=== PATIENT | male | born 1980 | race African-American/Black ===

== ENCOUNTER 2020-06-28 05:41 | Emergency (ER) | payer SELFPAY ==
[~2020-06-28] VITALS: Ht 175.3 cm; Wt 77.3 kg
[2020-06-28] MEDS ORDERED: iohexol 300mg/ml 100ml inj. ONE (06:37)
[2020-06-28 06:41] LABS: BASOPHILS # (AUTO) 0.1 X10'3 (0-0.2); BASOPHILS % (AUTO) 1.1 % (0-1); EOSINOPHILS # (AUTO) 0.3 X10'3 (0-0.9); EOSINOPHILS % (AUTO) 2.9 % (0-6); HEMATOCRIT 32.8 % (42.0-52.0); HEMOGLOBIN 11.4 g/dl (14.0-17.9); LYMPHOCYTES # (AUTO) 1.5 X10'3 (1.1-4.8); LYMPHOCYTES % (AUTO) 16.3 % (21-51); MEAN CORPUSCULAR HEMOGLOBIN 32.6 PG (27.0-31.0); MEAN CORPUSCULAR HGB CONC 34.8 g/dL (33.0-36.5); MEAN CORPUSCULAR VOLUME 93.8 FL (78-98); MEAN PLATELET VOLUME 8.2 FL (7.4-10.4); MONOCYTES # (AUTO) 1.5 X10'3 (0-0.9); MONOCYTES % (AUTO) 16.1 % (2-12); NEUTROPHILS % (AUTO) 63.6 % (42-75); PLATELET COUNT 243 X10'3 (140-440); RED BLOOD COUNT 3.49 X10'6 (4.70-6.10); RED CELL DISTRIBUTION WIDTH 13.4 % (11.5-14.5); WHITE BLOOD COUNT 9.3 X10'3 (4.5-11.0)
[2020-06-28 06:55] LABS: ALANINE AMINOTRANSFERASE 65 U/L (12-78); ALBUMIN 3.5 G/DL (3.4-5.0); ALBUMIN/GLOBULIN RATIO 0.7 (1.1-1.5); ALKALINE PHOSPHATASE 94 IU/L (46-116); ANION GAP 9 (8-16); ASPARTATE AMINO TRANSFERASE 49 U/L (10-37); BILIRUBIN,TOTAL 0.8 MG/DL (0.1-1.0); BLOOD UREA NITROGEN 12 MG/DL (7-18); BUN/CREATININE RATIO 12.1 (5.4-32.0); CALCIUM 9.8 MG/DL (8.5-10.1); CHLORIDE 99 MMOL/L (99-107); CREATININE 0.99 MG/DL (0.60-1.10); GLUCOSE 120 MG/DL (70-104); POTASSIUM 4.7 MMOL/L (3.5-5.1); SODIUM 138 MMOL/L (135-145); TOTAL CARBON DIOXIDE 29.8 MMOL/L (24-32); TOTAL PROTEIN 8.5 G/DL (6.4-8.2); eGFR > 90 ML/MIN
--- NOTE | 2020-06-28 07:17 | NUR ---
Let Dr Gamino know that the pt's sister has talked with [facility] and they pt is good to be transferred there. Also, let the pt's sister know that a transfer has to take place through the doctors and so Dr Gamino will need to talk to them and see about the transfer.
--- NOTE | 2020-06-28 07:25 | NUR ---
Dr Gamino in to talk with the pt's sister.
[2020-06-28 07:43] LABS: D-DIMER 6.19 MG/L FEU (0-0.50)
[2020-06-28 08:00] LABS: CLARITY,URINE CLEAR (Clear); COLOR,URINE YELLOW (Yellow); GLUCOSE, URINE NEGATIVE (Neg); KETONES,URINE NEGATIVE (Neg); LEUKOCYTE ESTERASE ,URINE NEGATIVE (Neg); NITRITES, URINE NEGATIVE (Neg); OCCULT BLOOD,URINE NEGATIVE (Neg); PH,URINE 7.5 (4.8-8.0); PROTEIN,URINE TRACE mg/dl (Neg)
[2020-06-28 08:03] LABS: UA COLLECTION TYPE URINAL
[2020-06-28 08:05] LABS: PLATELET ESTIMATE NORMAL; TOTAL CELLS COUNTED 100
[2020-06-28 08:10] LABS: BACTERIA,URINE FEW /HPF (Neg); RBC,URINE 0-2 /HPF (0-2); SQUAMOUS EPITHELIAL CELL,UR FEW /LPF (FEW); WBC,URINE 0-4 /HPF (0-4)
--- NOTE | 2020-06-28 09:50 | NUR ---
Called report to MARIA ESTHER Davis at [facility]
[2020-06-28] MEDS ORDERED: morphine 4 MG/ML inj SYRINge IV ONE (09:55)
[2020-06-28] MEDS ORDERED: ondansetron/PF 4mg/2ml inj IV ONE (10:05)
[2020-06-28 10:19] VITALS: BP 107/75
== END 2020-06-28 10:22 | disposition short-term general hospital (02) ==
LOC: ER 05:42
DX: I97.89 Other postprocedural complications and disorders of the circulatory system, not elsewhere classified (principal); Z20.822 Contact with and (suspected) exposure to COVID-19; R07.89 Other chest pain; R10.13 Epigastric pain; R05 Cough; R31.9 Hematuria, unspecified; R61 Generalized hyperhidrosis; R42 Dizziness and giddiness; F12.90 Cannabis use, unspecified, uncomplicated; I25.10 Atherosclerotic heart disease of native coronary artery without angina pectoris; Z95.1 Presence of aortocoronary bypass graft; Z72.89 Other problems related to lifestyle; Z98.890 Other specified postprocedural states; Y83.8 Other surgical procedures as the cause of abnormal reaction of the patient, or of later complication, without mention of misadventure at the time of the procedure
CPT/HCPCS: 36415; 71045; 71260; 74177; 80053; 81001; 83880; 84484; 85007; 85025; 85379; 87635; 93005; 96374; 96375; 99291; 99292; C9803; J2270; J2405; Q9967